=== PATIENT | female | born 2000 | race Caucasian/White ===

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

== ENCOUNTER 2020-07-21 15:42 | Emergency (ER) | payer BC ==
--- NOTE | 2020-07-21 16:23 | ERPHSYRPT ---
- History of Present Illness Source: patient Exam Limitations: no limitations Patient Subjective Stated Complaint: R ankle pain Triage Nursing Assessment: pt to ED c/o R ankle pain unknown onset. states when in college she was walking on campus, ankle began to pop, saw campus clinic and was given a scooter. denies issues from then to now. states ankle has began popping again with ambulation intermittently. rates 2/10 pain. very mild swelling noted to posterior R ankle. Physician History: 19 yo wf w R achilles pain x 10 days. Pt denies injury but had similar pain in Oct or November. Pain is 2/10 and worse w movement/Weight bearing. She denies chest pain/dyspnea/fever/edema. Method of Injury: unknown Occurred: other (10 days of pain) Quality: aching Severity of Pain-Max: moderate Severity of Pain-Current: mild Lower Extremities Pain: foot: right, ankle: right Modifying Factors: Improves With: movement Associated Symptoms: No unable to bear weight, No dizzy, No fainted, No seizure, No snapping sensation, No popping sensation Allergies/Adverse Reactions: No Known Drug Allergies Allergy (Unverified 09/14/13 17:52) Home Medications: No Reportable Medications [No Reported Medications] 03/31/18 [History] Hx Tetanus, Diphtheria Vaccination/Date Given: Yes Hx Influenza Vaccination/Date Given: No Hx Pneumococcal Vaccination/Date Given: No Travel Risk - International Travel Have you traveled outside of the country in past 3 weeks: No - Coronavirus Screening Are you exhibiting any of the following symptoms?: No Close contact with a COVID-19 positive Pt in past 14-21 Days: No - Review of Systems Constitutional: No Symptoms Eyes: No Symptoms Ears, Nose, & Throat: No Symptoms Respiratory: No Symptoms Cardiac: No Symptoms Abdominal/Gastrointestinal: No Symptoms Genitourinary Symptoms: No Symptoms Skin: No Symptoms Neurological: No Symptoms Psychological: No Symptoms Endocrine: No Symptoms Hematologic/Lymphatic: No Symptoms Immunological/Allergic: No Symptoms - Past Medical History Pertinent Past Medical History: No Neurological History: No Pertinent History ENT History: No Pertinent History Cardiac History: No Pertinent History Respiratory History: No Pertinent History Endocrine Medical History: No Pertinent History GI Medical History: No Pertinent History History: No Pertinent History Psycho-Social History: No Pertinent History Female Reproductive Disorders: No Pertinent History - Past Surgical History Past Surgical History: Yes Other Surgical History: TONSILECTOMY/ADNOIDECTOMY - Social History Smoking Status: Never smoker Exposure to second hand smoke: No Drug Use: none Patient Lives Alone: No Significant Family History: no pertinent family hx - Female History Hx Last Menstrual Period: currently Hx Now: No - Nursing Vital Signs Nursing Vital Signs: Initial Vital Signs Temperature 98.4 F 07/21/20 15:49 Pulse Rate 117 H 07/21/20 15:49 Respiratory Rate 18 07/21/20 15:49 Blood Pressure 142/98 07/21/20 15:49 O2 Sat by Pulse Oximetry 96 07/21/20 15:49 Pain Scale Pain Intensity 1 - Physical Exam General Appearance: no apparent distress Eyes, Ears, Nose, Throat Exam: normal ENT inspection, TMs normal, pharynx normal Neck Exam: normal inspection, non-tender, No Brudzinski, No Kernig's Cardiovascular/Respiratory Exam: normal breath sounds, heart sounds normal, no respiratory distress (Mildly tachy) Back Exam: normal inspection Hips Exam: bilateral: non-tender, normal inspection, normal range of motion, no evidence of injury Legs Exam: bilateral leg: non-tender, normal inspection, normal range of motion Knees Exam: bilateral knee: non-tender, normal inspection, normal range of motion, no evidence of injury Ankle Exam: left ankle: non-tender, normal inspection, normal range of motion, no evidence of injury (R achilles insertion mildly ttp/dorsiflexion wo difficulty/Good pedal pulse, distal sensation, and capillary return) DTR - Lower Extremities Exam: knee (R): 2+, knee (L): 2+ Neuro/Tendon Exam: normal sensation, normal motor functions, normal tendon functions, responds to pain, no evidence tendon injury Mental Status Exam: alert, oriented x 3, cooperative Skin Exam: normal color, warm, dry SpO2 Interpretation: normal SpO2: 96 O2 Delivery: Room Air - Radiology Exams Foot X-ray Interpretation: Interpreted by me (R foot-no fx or dislocation) Ordered Tests: Active Orders 24 hr Category Date Time Status Splint STAT Care 07/21/20 16:26 Completed FOOT (MINIMUM 3 VIEWS) Stat Exams 07/21/20 16:19 Completed - Progress Progress: improved Progress Note: 07/21/20 16:28 Pt refused pain meds Walking boot per nurse/NVI Counseled pt/family regarding: diagnosis, need for follow-up, rad results - Departure Departure Disposition: Home Clinical Impression: Achilles tendinitis Condition: Stable Critical Care Time: No Referrals: TIN LAST MD [Primary Care Provider] - VINICIUS - NOEL ARTEAGA NP [NON-STAFF PHY W/O PRIVILEGES] - Instructions: Achilles Tendinopathy Additional Instructions: Walking boot until cleared by family MD or supervisor wound Motrin/Tylenol for pain Follow up with family MD or supervisor wound
[2020-07-21 16:33] VITALS: BP 135/82; PULSE 104
--- NOTE | 2020-07-21 16:49 | XRAY ---
Indication: Heel pain following twisting injury one week ago. Comparison: None 3 nonweightbearing views right foot demonstrates small talonavicular accessory ossicle. No other bony, articular, or soft tissue abnormalities.
[2020-07-21 19:33] VITALS: O2SAT 96
== END 2020-07-21 16:40 | disposition home or self-care (01) ==
LOC: ED 15:42
DX: M76.61 Achilles tendinitis, right leg (principal); M25.571 Pain in right ankle and joints of right foot
CPT/HCPCS: 73630; 99283; L4386

== ENCOUNTER 2024-10-15 17:48 | Emergency (ER) | payer BC ==
--- NOTE | 2024-10-15 17:55 | ERPHSYRPT ---
- History of Present Illness Time Seen by Provider: 10/15/24 17:55 Source: patient Exam Limitations: no limitations Physician History: This is a 23-year-old white female patient who arrives by public transportation and is a patient of Dr. Last and is right-handed. Patient fell after slipping on a plastic mat use for dog food bowl. When she fell she hit the mat the mat broke in half and cut the dorsal aspect of her right wrist. Patient tetanus status is up-to-date. Patient has no known drug allergies and she takes no medications chronically. Timing/Duration: today Quality: painful Severity: mild Location: extremities (Right wrist dorsal aspect) Associated Symptoms: denies symptoms Allergies/Adverse Reactions: latex Allergy (Verified 10/15/24 18:01) Swelling Home Medications: Norethindrone AC-Eth Estradiol [Bud 1.5 mg-30 Mcg Tablet] 1 each PO DAILY 10/15/24 [History] Paroxetine HCl 20 mg [Paxil 20 MG] 20 mg PO DAILY 10/15/24 [History] Hx Tetanus, Diphtheria Vaccination/Date Given: Yes Hx Influenza Vaccination/Date Given: No Hx Pneumococcal Vaccination/Date Given: No Travel Risk - International Travel Have you traveled outside of the country in past 3 weeks: No - Emerging Infectious Disease Are you exhibiting symptoms associated with any current EIDs: No - Review of Systems Constitutional: No Symptoms Eyes: No Symptoms Ears, Nose, & Throat: No Symptoms Respiratory: No Symptoms Cardiac: No Symptoms Abdominal/Gastrointestinal: No Symptoms Genitourinary Symptoms: No Symptoms Musculoskeletal: No Symptoms Skin: Other (Right wrist skin laceration) Neurological: No Symptoms Psychological: No Symptoms Endocrine: No Symptoms Hematologic/Lymphatic: No Symptoms Immunological/Allergic: No Symptoms All Other Systems: Reviewed and Negative - Past Medical History Pertinent Past Medical History: No Neurological History: Migraines ENT History: No Pertinent History Cardiac History: No Pertinent History Respiratory History: No Pertinent History Endocrine Medical History: No Pertinent History Musculoskeletal History: No Pertinent History GI Medical History: No Pertinent History History: No Pertinent History Psycho-Social History: No Pertinent History Female Reproductive Disorders: No Pertinent History - Past Surgical History Past Surgical History: Yes Other Surgical History: TONSILECTOMY/ADNOIDECTOMY Significant Family History: no pertinent family hx - Female History Hx Last Menstrual Period: Aug - Social History Smoking Status: Never smoker Exposure to second hand smoke: No Drug Use: none Patient Lives Alone: No - Nursing Vital Signs Nursing Vital Signs: Initial Vital Signs Temperature 98 F 10/15/24 17:54 Pulse Rate 105 H 10/15/24 17:54 Respiratory Rate 18 10/15/24 17:54 Blood Pressure 147/124 10/15/24 17:54 O2 Sat by Pulse Oximetry 98 10/15/24 17:54 Pain Scale Pain Intensity 5 - Physical Exam General Appearance: no apparent distress, alert, anxiety, obese Eye Exam: PERRL/EOMI, eyes nml inspection Ears, Nose, Throat Exam: normal ENT inspection Neck Exam: normal inspection, non-tender, supple, full range of motion Respiratory Exam: airway intact, No chest tenderness, No respiratory distress Gastrointestinal/Abdomen Exam: No tenderness Pelvic Exam: not done Rectal Exam: not done Back Exam: normal inspection, normal range of motion, No CVA tenderness, No vertebral tenderness Extremity Exam: normal range of motion, pelvis stable, lacerations (1 cm skin laceration dorsal aspect right wrist. No active bleeding. No evidence of foreign body) Neurologic Exam: alert, oriented x 3, cooperative, electric organ assembler and checker II-XII nml as tested, nml cerebellar function, nml station & gait, sensation nml Skin Exam: normal color, warm, dry, laceration (See above extremity section) Lymphatic Exam: No adenopathy SpO2 Interpretation: normal O2 Delivery: Room Air Procedures - Laceration/Wound Repair Right Dorsal Wrist Time of Procedure: 18:15 Wound Location: Right, wrist (Dorsal aspect) Wound Length (cm): 1 Wound's Depth, Shape: superficial, linear Wound Explored: clean (Wound explored to the base. No active bleeding. No foreign body noted) Irrigated: Yes Hibiclens Prep: Yes Wound Repaired With: [place] Progress: 10/15/24 18:31 Patient tolerated the procedure well. After laceration repair, the site was again cleaned with Hibiclens solution, dried and a thin layer of bacitracin ointment was applied. A Band-Aid was placed overlying this repair site. - Course Nursing assessment & vital signs reviewed: Yes Ordered Tests: Active Orders 24 hr Category Date Time Status Sutures STAT Care 10/15/24 18:18 Active Wound Care STAT Care 10/15/24 18:18 Active Medication Summary Discontinued Medications Generic Name Dose Route Start Last Admin Trade Name Mykel PRN Reason Stop Dose Admin Bacitracin Zinc 0.9 each 10/15/24 18:18 10/15/24 18:19 Bacitracin Packet 1 Each Pckt TP 10/15/24 18:19 0.9 each STAT ONE Administration Bacitracin Zinc Confirm 10/15/24 18:16 Bacitracin Packet 1 Each Pckt Administered 10/15/24 18:17 Dose 1 each .ROUTE .STK-MED ONE - Progress Progress: improved Progress Note: 10/15/24 18:31 My medical decision making and the assignment of low complexity to this patient's medical issue today is based on review of the patient's past medical history, review of the patient's medication list, reviewed patient drug allergy list, history present illness and physical findings on examination. The workup does not require any laboratory radiographic studies. Differential diagnosis includes but is not limited to left skin laceration Counseled pt/family regarding: diagnosis, need for follow-up Medical Desision Making - Diagnostic Testing Diagnostic test were ordered, analyzed, and reviewed by me: No - Risk of complications Minimal Risk: Minimal risk of morbidity - Departure Departure Disposition: Home Clinical Impression: Laceration of skin of right wrist Condition: Stable Critical Care Time: No Referrals: TIN LAST MD [Primary Care Provider] - Follow up/PCP as directed Additional Instructions: Use Tylenol and ibuprofen for pain control. Keep the current bandage in place for 24 hours. After 24 hours, remove the current bandage and rinse the site off with soapy water. Blot dry or use a chair inspector then apply a thin layer of antibiotic ointment of choice and again cover with Band-Aid/bandage. Suture removal in 7 days.
[2024-10-15 18:01] VITALS: RESP 18; TEMP 98
[2024-10-15] MEDS ORDERED: BACIGUENT PACKET ONE (18:16)
[2024-10-15] MEDS: BACIGUENT PACKET TP ONE (18:19)
[2024-10-15 18:35] VITALS: BP 115/92; PULSE 108; O2SAT 96
== END 2024-10-15 18:41 | disposition home or self-care (01) ==
LOC: ED 17:48
DX: S61.511A Laceration without foreign body of right wrist, initial encounter (principal); W01.198A Fall on same level from slipping, tripping and stumbling with subsequent striking against other object, initial encounter
CPT/HCPCS: 12001; 99283; A9270-GY

== ENCOUNTER 2024-12-04 18:10 | Emergency (ER) | payer BC ==
--- NOTE | 2024-12-04 18:14 | ERPHSYRPT ---
- History of Present Illness Time Seen by Provider: 12/04/24 18:13 Source: patient, family Exam Limitations: no limitations Physician History: Pt had onset of 9 out of 10 mid low lumbar and sacral pain with nausea and some radiation to low abd. No Hx trauma, No blood thinners, some nausea/vomiting. No hx cancer no fever, no bowel or bladder symptoms although some blood with stools - no pain. No vag dc. Nontender abd without peritoneal signs. Chest clear. Ht reg without M. tender posterior sacrum midline and lower lumbar. Discussed with pt and available family risks and benefits of testing/Tx including CBC, CMP, HCG, UA, Amylase, Lipase, CT abd and spinal reconstruction , pain med dilaudid, and they wish to proceed so these are ordered. Results discussed with pt and available family. Timing/Duration: today Method of Injury: other (no injury reported) Quality: sharp, stabbing Back Pain Location: lumbar spine Severity of Pain-Max: moderate Severity of Pain-Current: moderate Modifying Factors: Improves With: movement, pain medication Associated Symptoms: nausea, vomiting, other (blood with bowel movements) Previous symptoms: no prior history Allergies/Adverse Reactions: latex Allergy (Verified 10/15/24 18:01) Swelling Home Medications: Norethindrone AC-Eth Estradiol [Bud 1.5 mg-30 Mcg Tablet] 1 each PO DAILY 10/15/24 [History] Paroxetine HCl 20 mg [Paxil 20 MG] 20 mg PO DAILY 10/15/24 [History] Hx Tetanus, Diphtheria Vaccination/Date Given: Yes Hx Influenza Vaccination/Date Given: No Hx Pneumococcal Vaccination/Date Given: No Travel Risk - Emerging Infectious Disease Are you exhibiting symptoms associated with any current EIDs: No - Review of Systems Constitutional: No Fever, No Chills Eyes: No Symptoms Ears, Nose, & Throat: No Symptoms Respiratory: No Cough, No Dyspnea Cardiac: No Chest Pain, No Edema, No Syncope Abdominal/Gastrointestinal: Nausea, Vomiting, No Abdominal Pain, No Diarrhea Genitourinary Symptoms: No Dysuria Musculoskeletal: Back Pain, No Neck Pain, No Fall, No Injury Skin: No Symptoms, No Rash Neurological: No Dizziness, No Focal Weakness, No Sensory Changes Psychological: No Symptoms Endocrine: No Symptoms Hematologic/Lymphatic: No Symptoms Immunological/Allergic: No Symptoms All Other Systems: Reviewed and Negative - Past Medical History Pertinent Past Medical History: No Neurological History: Migraines ENT History: No Pertinent History Cardiac History: No Pertinent History Respiratory History: No Pertinent History Endocrine Medical History: No Pertinent History Musculoskeletal History: No Pertinent History GI Medical History: No Pertinent History History: No Pertinent History Psycho-Social History: No Pertinent History Female Reproductive Disorders: No Pertinent History Other Medical History: UTI - Past Surgical History Past Surgical History: Yes Other Surgical History: TONSILECTOMY/ADNOIDECTOMY Significant Family History: no pertinent family hx - Female History Hx Last Menstrual Period: Aug - Social History Smoking Status: Never smoker Exposure to second hand smoke: No Drug Use: none Patient Lives Alone: No - Social Determinants of Health Will the patient participate in the screening: Declined to provide - Nursing Vital Signs Nursing Vital Signs: Initial Vital Signs Temperature 96.8 F 12/04/24 18:20 Pulse Rate 116 H 12/04/24 18:20 Respiratory Rate 18 12/04/24 18:20 Blood Pressure 173/113 12/04/24 18:20 O2 Sat by Pulse Oximetry 99 12/04/24 18:20 Pain Scale Pain Intensity [] 8 Pain Intensity 5 - Physical Exam General Appearance: no apparent distress, alert Eye Exam: PERRL/EOMI, eyes nml inspection Neck Exam: normal inspection, non-tender, supple, full range of motion, No meningismus, No midline tenderness Respiratory Exam: normal breath sounds, lungs clear, No chest tenderness, No respiratory distress Cardiovascular Exam: regular rate/rhythm, normal heart sounds Gastrointestinal Exam: soft, No tenderness, No distention, No mass, No guarding, No pulsatile mass, No rebound Pelvic Exam: deferred Rectal Exam: deferred Back Exam: normal inspection, vertebral tenderness, point tenderness Extremity Exam: normal inspection, normal range of motion, No calf tenderness, No pedal edema Peripheral Pulses: carotid (R): 2+, carotid (L): 2+, femoral (R): 2+, femoral (L): 2+, dorsalis-pedis (R): 2+, dorsalis-pedis (L): 2+ Neurologic Exam: alert, oriented x 3, cooperative, group managing director II-XII nml as tested, normal mood/affect, nml station & gait, sensation nml, No motor deficits Skin Exam: normal color, warm, dry, No rash SpO2 Interpretation: normal SpO2: 99 O2 Delivery: Room Air - Course Nursing assessment & vital signs reviewed: Yes - CT Exams Abdomen/Pelvis CT Interpretation: Tele-radiologist Report, Other (left renal stone and mild hyd ro. ) Ordered Tests: Active Orders 24 hr Category Date Time Status IV Insertion STAT Care 12/04/24 18:36 Active ABDOMEN AND PELVIS W/0 CONTRAS [CT] Stat Exams 12/04/24 18:35 Completed RECONSTRUCTION [CT] Stat Exams 12/04/24 19:08 Completed AMYLASE Stat Lab 12/04/24 18:45 Completed CBC W DIFF Stat Lab 12/04/24 18:45 Completed CMP Stat Lab 12/04/24 18:45 Completed CULTURE,URINE Stat Lab 12/04/24 19:01 Received HCG QUALITATIVE, SERUM Stat Lab 12/04/24 18:45 Completed LIPASE Stat Lab 12/04/24 18:45 Completed Lactic Acid Stat Lab 12/04/24 18:45 Completed UA W/RFX UR CULTURE Stat Lab 12/04/24 19:01 Completed Medication Summary Discontinued Medications Generic Name Dose Route Start Last Admin Trade Name Mykel PRN Reason Stop Dose Admin Hydromorphone HCl 1 mg 12/04/24 18:36 12/04/24 18:52 Hydromorphone 1 Mg/1ml Inj IV 12/04/24 18:37 1 mg STAT ONE Administration Hydromorphone HCl Confirm 12/04/24 18:47 Hydromorphone 1 Mg/1ml Inj Administered 12/04/24 18:48 Dose 1 mg .ROUTE .STK-MED ONE Hydromorphone HCl 1 mg 12/04/24 22:44 12/04/24 23:08 Hydromorphone 1 Mg/1ml Inj IV 12/04/24 22:45 1 mg STAT ONE Administration Hydromorphone HCl Confirm 12/04/24 23:05 Hydromorphone 1 Mg/1ml Inj Administered 12/04/24 23:06 Dose 1 mg .ROUTE .STK-MED ONE Ceftriaxone Sodium 1 gm in 100 mls @ 200 mls/hr 12/04/24 22:12 12/04/24 23:15 Rocephin 1 Gm / 100 Ml Nacl IV 12/04/24 22:41 200 mls/hr STAT ONE 200 mls/hr Administration Ceftriaxone Sodium Confirm 12/04/24 23:05 Rocephin 1 Gm / 100 Ml Nacl Administered 12/04/24 23:06 Dose 1 gm in 100 mls @ ud IV .STK-MED ONE Ondansetron HCl 4 mg 12/04/24 18:36 12/04/24 18:51 Ondansetron Hcl 4 Mg/2 Ml Vial IV 12/04/24 18:37 4 mg STAT ONE Administration Ondansetron HCl Confirm 12/04/24 18:47 Ondansetron Hcl 4 Mg/2 Ml Vial Administered 12/04/24 18:48 Dose 4 mg .ROUTE .STK-MED ONE Lab/Rad Data: Laboratory Result Diagrams 12/04/24 18:45 12/04/24 18:45 Laboratory Results 12/04/24 12/04/24 12/04/24 Range/Units 19:01 18:45 18:45 WBC (3.98-10.04) x10^3/uL RBC (3.93-5.22) x10^6/uL Hgb (11.2-15.7) g/dL Hct (34.1-44.9) % MCV (79.4-94.8) fL MCH (25.6-32.2) pg MCHC (32.2-35.5) g/dL RDW (11.7-14.4) % Plt Count (182-369) x10^3/uL MPV (9.4-12.3) fL Gran % (34.0-71.1) % Immature Gran % (Auto) (0.001-0.429) % Nucleat RBC Rel Count (0.00-0.2) % Eos # (Auto) (0.04-0.36) x10^3/uL Immature Gran # (Auto) (0.001-0.031) x10^3u/L Absolute Lymphs (auto) (1.18-3.74) x10^3/uL Absolute Monos (auto) (0.24-0.86) x10^3/uL Absolute Nucleated RBC (0.00-0.012) x10^3u/L Lymphocytes % (19.3-51.7) % Monocytes % (4.7-12.5) % Eosinophils % (0.7-5.8) % Basophils % (0.1-1.2) % Absolute Granulocytes (1.56-6.13) x10^3/uL Basophils # (0.01-0.08) x10^3/uL Sodium 138 (135-145) mmol/L Potassium 4.0 (3.5-5.1) mmol/L Chloride 107 (98-107) mmol/L Carbon Dioxide 19 L (22-30) mmol/L Anion Gap 16.1 H (5-15) MEQ/L BUN 10 (7-17) mg/dL Creatinine 0.78 (0.52-1.04) mg/dL Estimated GFR 108.7 ML/MIN Glucose 122 H (74-106) mg/dL Lactic Acid (0.4-2.0) Calcium 9.6 (8.4-10.2) mg/dL Total Bilirubin 0.40 (0.2-1.3) mg/dL AST 29 (14-36) U/L ALT 26 (0-35) U/L Alkaline Phosphatase 107 (38-126) U/L Serum Total Protein 8.1 (6.3-8.2) g/dL Albumin 4.9 (3.5-5.0) g/dL Amylase 66 (30-110) U/L Lipase 48 (23-300) U/L Serum HCG, Qual NEGATIVE (NEGATIVE) Urine Color Yellow (Yellow) Urine Appearance Clear (Clear) Urine pH 6.0 (4.6-8.0) Ur Specific [place] 1.025 (1.005-1.030) Urine Protein 30 (Negative) Urine Glucose (UA) Negative (Negative) mg/dL Urine Ketones 15 A (Negative) Urine Blood Negative (Negative) Urine Nitrite Negative (Negative) Urine Bilirubin Negative (Negative) Urine Urobilinogen 0.2 (0.2) mg/dL Ur Leukocyte Esterase Negative (Negative) U Hyaline Cast (Auto) NONE SEEN (0-2) /LPF Urine Microscopic RBC 3-5 (0-5) /HPF Urine Microscopic WBC 11-20 A (0-5) /HPF Ur Epithelial Cells Few (None Seen) /HPF Urine Bacteria Few A (None Seen) /HPF Urine Culture Reflexed YES (NO) 12/04/24 12/04/24 Range/Units 18:45 18:45 WBC 18.8 H (3.98-10.04) x10^3/uL RBC 4.93 (3.93-5.22) x10^6/uL Hgb 14.2 (11.2-15.7) g/dL Hct 42.7 (34.1-44.9) % MCV 86.6 (79.4-94.8) fL MCH 28.8 (25.6-32.2) pg MCHC 33.3 (32.2-35.5) g/dL RDW 13.7 (11.7-14.4) % Plt Count 427 H (182-369) x10^3/uL MPV 9.6 (9.4-12.3) fL Gran % 79.2 H (34.0-71.1) % Immature Gran % (Auto) 0.5 H (0.001-0.429) % Nucleat RBC Rel Count 0.0 (0.00-0.2) % Eos # (Auto) 0.20 (0.04-0.36) x10^3/uL Immature Gran # (Auto) 0.10 H (0.001-0.031) x10^3u/L Absolute Lymphs (auto) 2.69 (1.18-3.74) x10^3/uL Absolute Monos (auto) 0.84 (0.24-0.86) x10^3/uL Absolute Nucleated RBC 0.00 (0.00-0.012) x10^3u/L Lymphocytes % 14.3 L (19.3-51.7) % Monocytes % 4.5 L (4.7-12.5) % Eosinophils % 1.1 (0.7-5.8) % Basophils % 0.4 (0.1-1.2) % Absolute Granulocytes 14.84 H (1.56-6.13) x10^3/uL Basophils # 0.08 (0.01-0.08) x10^3/uL Sodium (135-145) mmol/L Potassium (3.5-5.1) mmol/L Chloride (98-107) mmol/L Carbon Dioxide (22-30) mmol/L Anion Gap (5-15) MEQ/L BUN (7-17) mg/dL Creatinine (0.52-1.04) mg/dL Estimated GFR ML/MIN Glucose (74-106) mg/dL Lactic Acid 1.9 (0.4-2.0) Calcium (8.4-10.2) mg/dL Total Bilirubin (0.2-1.3) mg/dL AST (14-36) U/L ALT (0-35) U/L Alkaline Phosphatase (38-126) U/L Serum Total Protein (6.3-8.2) g/dL Albumin (3.5-5.0) g/dL Amylase (30-110) U/L Lipase (23-300) U/L Serum HCG, Qual (NEGATIVE) Urine Color (Yellow) Urine Appearance (Clear) Urine pH (4.6-8.0) Ur Specific [place] (1.005-1.030) Urine Protein (Negative) Urine Glucose (UA) (Negative) mg/dL Urine Ketones (Negative) Urine Blood (Negative) Urine Nitrite (Negative) Urine Bilirubin (Negative) Urine Urobilinogen (0.2) mg/dL Ur Leukocyte Esterase (Negative) U Hyaline Cast (Auto) (0-2) /LPF Urine Microscopic RBC (0-5) /HPF Urine Microscopic WBC (0-5) /HPF Ur Epithelial Cells (None Seen) /HPF Urine Bacteria (None Seen) /HPF Urine Culture Reflexed (NO) - Progress Progress: improved, re-examined Progress Note: 12/04/24 23:47 pain down from 9 to 0 now. I discussed with pt and mom that this pain may not necessarily be related to the stone, and that there could be additional pathology evolving undetected incuding infection, vascular, abdominal or other. they are aware, and wish to have outpt f/u rather than furhter eval in ER or hospital and have the cqapcity to make this choice. Counseled pt/family regarding: lab results, diagnosis, need for follow-up, rad results Medical Desision Making - Independent Historian Additional History obtained from: Family - Discussion of managment Reviewed:: Test results, Need for additional workup Agreed on:: Treatment plan, need for follow-up - Diagnostic Testing Diagnostic test were ordered, analyzed, and reviewed by me: Yes Radiological Interpretation: Teleradiologist Report - Risk of complications The pt has a mod risk of morbidity or mortality based on: Need for prescription drug management The pt has a high risk of morbidity or mortality based on: Decision regarding hospitilization or escalation of hosp level of care - Departure Departure Disposition: Home Clinical Impression: Renal calculus, UTI (urinary tract infection) Condition: Good Critical Care Time: No Referrals: TIN LAST MD [Primary Care Provider] - Follow up/PCP as directed Instructions: Low Back Pain (DC), Kidney stones in adults - ED discharge instructions, Urinary tract infection in adults - ED discharge instructions, Abdominal pain in adults - ED discharge instructions Additional Instructions: Although there is a kidney stone which seems a likely source for your pain, we have not yet determined the exact cause, and there still could be other undetected conditions developing - so followup with your DrGayathri and referral to a urologist are important. Return meantime if not improving, vomiting, fever, dizziness or any othe4r symptoms of concern. also followup your blood pressure with your Dr. strain the urine for the stones. Prescriptions: Hydrocodone/Acetaminophen [Hydrocodone-Acetamin 5-325 mg] 1 tab PO Q6HPRN PRN #14 tablet MDD 4 PRN Reason: Pain Cephalexin Mh 500 mg [Keflex 500 mg] 500 mg PO TID 7 Days #21 cap
[2024-12-04 18:21] VITALS: TEMP 96.8
[2024-12-04] MEDS ORDERED: Hydromorphone 1 mg/ml Injection ONE ×2 (18:47→23:05)
[2024-12-04] MEDS ORDERED: Zofran 4 MG/2 ML VIAL ONE (18:47)
[2024-12-04 18:48] LABS: Absolute Neutrophil Ct (ANC) 14.84 x10^3/uL (1.56-6.13); BASOPHIL % 0.4 % (0.1-1.2); Basophil (Absolute #) 0.08 x10^3/uL (0.01-0.08); Eosinophil % 1.1 % (0.7-5.8); Hematocrit 42.7 % (34.1-44.9); Hemoglobin 14.2 g/dL (11.2-15.7); IMMATURE GRAN % 0.5 % (0.001-0.429); Lymphocyte (Absolute #) 2.69 x10^3/uL (1.18-3.74); Lymphocytes % 14.3 % (19.3-51.7); Mean Cell Volume 86.6 fL (79.4-94.8); Mean Corpuscular Hemoglobin 28.8 pg (25.6-32.2); Mean Corpuscular Hgb Concent. 33.3 g/dL (32.2-35.5); Mean Platelet Volume 9.6 fL (9.4-12.3); Monocyte (Absolute #) 0.84 x10^3/uL (0.24-0.86); Monocytes % 4.5 % (4.7-12.5); Neutrophil % 79.2 % (34.0-71.1); Platelet Count 427 x10^3/uL (182-369); Red Blood Count 4.93 x10^6/uL (3.93-5.22); Red Cell Distribution Width 13.7 % (11.7-14.4); White Blood Count 18.8 x10^3/uL (3.98-10.04)
[2024-12-04] MEDS: Zofran 4 MG/2 ML VIAL IV ONE (18:51)
[2024-12-04] MEDS: Hydromorphone 1 mg/ml Injection IV ONE ×2 (18:52→23:08)
[2024-12-04 19:00] LABS: ALBUMIN 4.9 g/dL (3.5-5.0); ANION GAP 16.1 MEQ/L (5-15); BILIRUBIN,TOTAL 0.4 mg/dL (0.2-1.3); Calcium 9.6 mg/dL (8.4-10.2); Creatinine 1 0.78 mg/dL (0.52-1.04); EST GLOMERULAR FILTRATION RATE 108.7 ML/MIN; Total Protein 8.1 g/dL (6.3-8.2)
[2024-12-04 19:12] LABS: HCG SERUM TEST NEGATIVE (NEGATIVE)
[2024-12-04 20:17] LABS: Appearance Clear (Clear); Bacteria Few /HPF (None Seen); Bilirubin Negative (Negative); Blood Negative (Negative); Epithelial Cells Few /HPF (None Seen); Glucose, Urine Negative (Negative); Hyaline Casts NONE SEEN /LPF (0-2); Ketones 15 (Negative); Leukocyte Esterase Negative (Negative); Nitrite Negative (Negative); Protein,Urine Dip 30 (Negative); Specific Gravity 1.025 (1.005-1.030); Urobilinogen 0.2 mg/dL (0.2)
--- NOTE | 2024-12-04 21:49 | XRAY ---
CLINICAL HISTORY: back and abd pain COMPARISON: No prior studies available for comparison TECHNIQUE: Non-contrast CT of the abdomen and pelvis was performed, with the following protocol: axial images, and reconstructed coronal and sagittal images. No intravenous contrast was administered. One of the following dose reduction techniques was utilized for this exam: Automated exposure control, adjustment of the mA and/or kV according to patient size, and use of iterative reconstruction. FINDINGS: Abdomen: Liver: Enlarged in size measuring 19.7 cm in craniocaudal span with diffuse hypodensity. No focal lesions, cysts, or masses were identified. Gallbladder and Biliary System: The gallbladder is normal in size and shape. No wall thickening, pericholecystic fluid, or gallstones were identified. Pancreas: Pancreatic head, body, and tail are visualized and appear normal in size and density. No pancreatic masses or calcifications were noted. Spleen: Normal in size, shape, and density. No splenic lesions or masses were identified. Kidneys and Adrenal Glands: Both kidneys are normal in size, shape, and position. Cortical thickness is within normal limits. Left renal pelvic stone seen measuring 1 x 0.7 cm with subsequent mild hydronephrosis. Adrenal glands are unremarkable. Appendix: The appendix is normal in size without franck appendiceal fat stranding, and without an appendicolith. No evidence of appendiceal abscess or perforation. Pelvis: Urinary Bladder: Normal in contour and wall thickness. No intraluminal lesions. Uterus: Normal in size and contour. No masses or abnormal thickening. Ovaries: Not well visualized but no gross abnormalities noted. Vagina: Normal in contour and wall thickness. Cervix: No evidence of mass or abnormal thickening. Peritoneal and Retroperitoneal Structures: No free fluid or abnormal fluid collections were identified within the abdomen or pelvis. No lymphadenopathy was noted. Bowel: The visualized bowel loops are normal in caliber and appearance. No evidence of bowel obstruction or wall thickening. Bones and Soft Tissues: Pelvic bones and soft tissues are unremarkable. No fractures or abnormal masses were identified. IMPRESSION: Left renal pelvic stone seen measuring 1 x 0.7 cm with subsequent mild hydronephrosis. Hepatosteatosis. Electronically Signed by: Indigo King MD. (12/04/2024 21:44:11 EST)
--- NOTE | 2024-12-04 21:51 | XRAY ---
CLINICAL HISTORY: PAIN COMPARISON: No prior studies are available for comparison. TECHNIQUE: CT non-contrast scan of lumbar spine done. Axial images obtained with reformatted coronal and sagittal images and submitted for interpretation. One of the following dose reduction techniques were utilized for this exam: Automated exposure control, adjustment of the mA and/or kV according to patient size, use of iterative reconstruction. FINDINGS: Vertebrae: Straightening of the lumbar spine possibly due to muscular spasm. No fractures, lytic or sclerotic lesions. Normal bone density without evidence of osteopenia or osteoporosis. Intervertebral Discs: Normal height and signal intensity of the intervertebral discs. No evidence of disc herniation, bulging, or significant degeneration. Spinal Canal and Neural Foramina: Spinal canal is of normal caliber with no evidence of spinal stenosis. Neural foramina are patent bilaterally at all levels. No evidence of nerve root compression. Facet Joints: Normal appearance of the facet joints. No evidence of facet arthropathy or significant degenerative changes. Soft Tissues: Normal appearance of the paraspinal soft tissues. No abnormal masses, fluid collections, or signs of inflammation. Left renal pelvic stone measuring about 1 cm with mild backpressure changes. IMPRESSION: 1. Straightening of the lumbar spine possibly due to muscular spasm. 2. No fractures, dislocation, or significant degenerative changes. 3. Left renal pelvic stone measuring about 1 cm with mild backpressure changes. Electronically Signed by: Indigo King MD. (12/04/2024 21:46:05 EST)
[2024-12-04] MEDS ORDERED: ROCEPHIN 1 GM / 100 ML NaCl 1 GM/100 ML IVPB IV ONE (23:05)
[2024-12-04] MEDS: ROCEPHIN 1 GM / 100 ML NaCl 1 GM/100 ML IVPB IV ONE (23:15)
[2024-12-05 00:05] VITALS: BP 153/107; PULSE 98; RESP 18; O2SAT 96
== END 2024-12-05 00:11 | disposition home or self-care (01) ==
LOC: ED 18:10
DX: N13.2 Hydronephrosis with renal and ureteral calculous obstruction (principal); N39.0 Urinary tract infection, site not specified; M54.50 Low back pain, unspecified; R11.0 Nausea; R10.30 Lower abdominal pain, unspecified; Z79.891 Long term (current) use of opiate analgesic; Z79.899 Other long term (current) drug therapy
CPT/HCPCS: 36415; 74176; 76376; 80053; 81001; 82150; 83605; 83690; 84703; 85025; 87086; 96374; 96375; 96376; 99284; 99285; J0696; J1171; J2405

== ENCOUNTER 2024-12-22 15:59 | Emergency (ER) | payer BC ==
--- NOTE | 2024-12-22 16:04 | ERPHSYRPT ---
- History of Present Illness Time Seen by Provider: 12/22/24 16:03 Source: patient Exam Limitations: no limitations Physician History: This is a 24-year-old white female patient of Dr. Last who arrives by private vehicle and was seen in our emergency department on 12/04/2024 and diagnosed with a renal stone and urinary tract infection as well as hydronephrosis. A CT scan of the abdomen pelvis was performed on the same date which showed a left renal pelvic stone measuring 1 cm x 0.7 cm with mild hydronephrosis, normal appendicitis. Patient was offered transfer to a outside facility but the patient desired outpatient follow-up with a urologist. She did in fact see a urologist and patient underwent left renal calculus removal with left ureteral stent placement. The ureteral stent on the left side was removed today at [facility] in [facility] at approximately 9:30 AM. She reports, she was discharged to home and by 10:15 AM, the pain was returning in the left flank region. Patient took ibuprofen which resolved her pain nearly completely. Within a few hours the pain in the left flank returned and she took Tylenol which did not help. The cramping type pain in the left flank was worse and she arrives to the emergency department with left flank pain. She is tearful. Timing/Duration: today Activites at Onset: none Quality: cramping, stabbing Onset Location: left flank Pain Radiation: none Severity of Pain-Max: moderate Severity of Pain-Current: moderate Sexual intercourse history: non-contributory Modifying Factors: Improves With: other (Ibuprofen seem to help.) Associated Symptoms: denies symptoms Allergies/Adverse Reactions: latex Allergy (Verified 12/22/24 16:09) Swelling Home Medications: Norethindrone AC-Eth Estradiol [Bud 1.5 mg-30 Mcg Tablet] 1 each PO DAILY 10/15/24 [History] Paroxetine HCl 20 mg [Paxil 20 MG] 20 mg PO DAILY 10/15/24 [History] Ketorolac Trometh 10 mg Tab [TORAdol 10 MG TABLET] 10 mg PO BID 12/22/24 [History] Tamsulosin HCl 0.4 mg [Flomax 0.4 MG] 0.4 mg PO DAILY 12/22/24 [History] Hx Tetanus, Diphtheria Vaccination/Date Given: Yes Hx Influenza Vaccination/Date Given: No Hx Pneumococcal Vaccination/Date Given: No Travel Risk - International Travel Have you traveled outside of the country in past 3 weeks: No - Emerging Infectious Disease Are you exhibiting symptoms associated with any current EIDs: No Symptoms: Vomitting - Review of Systems Constitutional: No Symptoms Eyes: No Symptoms Ears, Nose, & Throat: No Symptoms Respiratory: No Symptoms Cardiac: No Symptoms Abdominal/Gastrointestinal: No Symptoms Genitourinary Symptoms: Flank Pain (Left side) Musculoskeletal: No Symptoms Skin: No Symptoms Neurological: No Symptoms Psychological: No Symptoms Endocrine: No Symptoms Hematologic/Lymphatic: No Symptoms Immunological/Allergic: No Symptoms All Other Systems: Reviewed and Negative - Past Medical History Pertinent Past Medical History: No Neurological History: Migraines ENT History: No Pertinent History Cardiac History: No Pertinent History Respiratory History: No Pertinent History Endocrine Medical History: No Pertinent History Musculoskeletal History: No Pertinent History GI Medical History: No Pertinent History History: No Pertinent History Psycho-Social History: No Pertinent History Female Reproductive Disorders: No Pertinent History Other Medical History: UTI - Past Surgical History Past Surgical History: Yes Other Surgical History: TONSILECTOMY/ADNOIDECTOMY Significant Family History: no pertinent family hx - Female History Hx Last Menstrual Period: Aug - Social History Smoking Status: Never smoker Exposure to second hand smoke: No Drug Use: none Patient Lives Alone: No - Social Determinants of Health Will the patient participate in the screening: Declined to provide - Nursing Vital Signs Nursing Vital Signs: Initial Vital Signs Temperature 96.8 F 12/22/24 16:12 Pulse Rate 103 H 12/22/24 16:12 Respiratory Rate 18 12/22/24 16:12 Blood Pressure 151/95 12/22/24 16:12 O2 Sat by Pulse Oximetry 97 12/22/24 16:12 Pain Scale Pain Intensity 1 - Physical Exam General Appearance: mild distress, alert, anxiety Eye Exam: PERRL/EOMI, eyes nml inspection Ears, Nose, Throat Exam: normal ENT inspection, moist mucous membranes Neck Exam: normal inspection, non-tender, supple, full range of motion Respiratory Exam: normal breath sounds, lungs clear, airway intact, No chest tenderness, No respiratory distress Cardiovascular Exam: regular rate/rhythm, normal heart sounds, normal peripheral pulses Gastrointestinal/Abdomen Exam: soft, normal bowel sounds, No tenderness Pelvic Exam: not done Rectal Exam: not done Back Exam: normal inspection, normal range of motion, CVA tenderness (Left side) Extremity Exam: normal inspection, normal range of motion, pelvis stable Neurologic Exam: alert, oriented x 3, cooperative, line o scribe operator II-XII nml as tested, normal mood/affect, nml cerebellar function, nml station & gait, sensation nml Skin Exam: normal color, warm, dry Lymphatic Exam: No adenopathy SpO2 Interpretation: normal O2 Delivery: Room Air - Course Nursing assessment & vital signs reviewed: Yes Ordered Tests: Active Orders 24 hr Category Date Time Status IV Insertion STAT Care 12/22/24 16:24 Active ABDOMEN AND PELVIS W/0 CONTRAS [CT] Stat Exams 12/22/24 16:24 Taken AMYLASE Stat Lab 12/22/24 16:15 Completed CBC W DIFF Stat Lab 12/22/24 16:15 Completed CMP Stat Lab 12/22/24 16:15 Completed CULTURE,URINE Stat Lab 12/22/24 17:15 Received LIPASE Stat Lab 12/22/24 16:15 Completed UA W/RFX UR CULTURE Stat Lab 12/22/24 17:15 Completed Medication Summary Generic Name Dose Route Start Last Admin Trade Name Freq PRN Reason Stop Dose Admin Ceftriaxone Sodium 1 gm in 100 mls @ 200 mls/hr 12/22/24 17:57 12/22/24 18:07 Rocephin 1 Gm / 100 Ml Nacl IV 12/22/24 18:26 200 ml/hr STAT ONE 200 mls/hr Administration Discontinued Medications Generic Name Dose Route Start Last Admin Trade Name Freq PRN Reason Stop Dose Admin Hydromorphone HCl 1 mg 12/22/24 16:24 12/22/24 16:42 Hydromorphone 1 Mg/1ml Inj IV 12/22/24 16:25 1 mg STAT ONE Administration Hydromorphone HCl Confirm 12/22/24 16:31 Hydromorphone 1 Mg/1ml Inj Administered 12/22/24 16:32 Dose 1 mg .ROUTE .STK-MED ONE Sodium Chloride 1,000 mls @ 999 mls/hr 12/22/24 16:24 12/22/24 17:54 Sodium Chloride 0.9% 1000 Ml IV 12/22/24 17:24 Infused .Q1H1M STA Infusion Sodium Chloride Confirm 12/22/24 16:31 Sodium Chloride 0.9% 1000 Ml Administered 12/22/24 16:32 Dose 1,000 mls @ ud .ROUTE .STK-MED ONE Ceftriaxone Sodium Confirm 12/22/24 18:05 Rocephin 1 Gm / 100 Ml Nacl Administered 12/22/24 18:06 Dose 1 gm in 100 mls @ ud IV .STK-MED ONE Ketorolac Tromethamine 30 mg 12/22/24 16:24 12/22/24 16:39 Ketorolac Tromethamine 30 Mg/Ml Inj IV 12/22/24 16:25 30 mg STAT ONE Administration Ketorolac Tromethamine Confirm 12/22/24 16:30 Ketorolac Tromethamine 30 Mg/Ml Inj Administered 12/22/24 16:31 Dose 30 mg .ROUTE .STK-MED ONE Ondansetron HCl 4 mg 12/22/24 16:24 12/22/24 16:33 Ondansetron Hcl 4 Mg/2 Ml Vial IV 12/22/24 16:25 4 mg STAT ONE Administration Ondansetron HCl Confirm 12/22/24 16:29 Ondansetron Hcl 4 Mg/2 Ml Vial Administered 12/22/24 16:30 Dose 4 mg .ROUTE .STK-MED ONE Lab/Rad Data: Laboratory Result Diagrams 12/22/24 16:15 12/22/24 16:15 Laboratory Results 12/22/24 12/22/24 12/22/24 Range/Units 17:15 16:15 16:15 WBC 20.4 H (3.98-10.04) x10^3/uL RBC 4.40 (3.93-5.22) x10^6/uL Hgb 12.7 (11.2-15.7) g/dL Hct 38.3 (34.1-44.9) % MCV 87.0 (79.4-94.8) fL MCH 28.9 (25.6-32.2) pg MCHC 33.2 (32.2-35.5) g/dL RDW 13.9 (11.7-14.4) % Plt Count 417 H (182-369) x10^3/uL MPV 9.3 L (9.4-12.3) fL Gran % 76.4 H (34.0-71.1) % Immature Gran % (Auto) 0.5 H (0.001-0.429) % Nucleat RBC Rel Count 0.0 (0.00-0.2) % Eos # (Auto) 0.12 (0.04-0.36) x10^3/uL Immature Gran # (Auto) 0.11 H (0.001-0.031) x10^3u/L Absolute Lymphs (auto) 3.09 (1.18-3.74) x10^3/uL Absolute Monos (auto) 1.48 H (0.24-0.86) x10^3/uL Absolute Nucleated RBC 0.00 (0.00-0.012) x10^3u/L Lymphocytes % 15.1 L (19.3-51.7) % Monocytes % 7.2 (4.7-12.5) % Eosinophils % 0.6 L (0.7-5.8) % Basophils % 0.2 (0.1-1.2) % Absolute Granulocytes 15.58 H (1.56-6.13) x10^3/uL Basophils # 0.05 (0.01-0.08) x10^3/uL Sodium 139 (135-145) mmol/L Potassium 4.2 (3.5-5.1) mmol/L Chloride 103 (98-107) mmol/L Carbon Dioxide 24 (22-30) mmol/L Anion Gap 16.0 H (5-15) MEQ/L BUN 12 (7-17) mg/dL Creatinine 0.79 (0.52-1.04) mg/dL Estimated GFR 107.1 ML/MIN Glucose 146 H (74-106) mg/dL Calcium 9.3 (8.4-10.2) mg/dL Total Bilirubin 0.40 (0.2-1.3) mg/dL AST 23 (14-36) U/L ALT 23 (0-35) U/L Alkaline Phosphatase 79 (38-126) U/L Serum Total Protein 7.0 (6.3-8.2) g/dL Albumin 4.3 (3.5-5.0) g/dL Amylase 53 (30-110) U/L Lipase 22 L (23-300) U/L Urine Color Yellow (Yellow) Urine Appearance Clear (Clear) Urine pH 6.5 (4.6-8.0) Ur Specific [place] 1.010 (1.005-1.030) Urine Protein 30 (Negative) Urine Glucose (UA) Negative (Negative) mg/dL Urine Ketones Negative (Negative) Urine Blood Large A (Negative) Urine Nitrite Negative (Negative) Urine Bilirubin Negative (Negative) Urine Urobilinogen 0.2 (0.2) mg/dL Ur Leukocyte Esterase Moderate A (Negative) U Hyaline Cast (Auto) NONE SEEN (0-2) /LPF Urine Microscopic RBC 11-20 A (0-5) /HPF Urine Microscopic WBC 21-50 A (0-5) /HPF Ur Epithelial Cells Rare (None Seen) /HPF Urine Bacteria None Seen (None Seen) /HPF Urine Culture Reflexed YES (NO) - Progress Progress: improved, re-examined Air Movement: good Progress Note: 12/22/24 16:52 My medical decision making of the assignment of moderate complexity to this patient's medical issue today is based on review of the patient's past medical history, review of the patient's medication list, review the patient drug allergy list, history present illness and physical findings on examination. The workup in this patient includes placement of an intravenous line, infusion of normal saline solution, infusion of Dilaudid, infusion of Zofran, infusion of Toradol, CBC, CMP, amylase, lipase, CT scan of the abdomen pelvis without contrast. Differential diagnosis includes but is not limited to postprocedure left renal and ureteral hydronephrosis, pyelonephritis 12/22/24 18:25 I interpreted the patient's laboratory data results. Based on the laboratory data results, the patient has a leukocytosis of 20,000. No other acute, emergent medical issues. The CT scan without contrast was interpreted by the radiologist and I reviewed the impression. The impression states compared to the similar study dated 12/04/2024, there is now 3 fragments of the prior renal calculus present. This is presumed to be present after lithotripsy. There is tiny air bubbles, presumed iatrogenic, in the left kidney and urinary bladder. There is mild left hydronephrosis and hydroureter. Patient's pain is much better controlled. I spoke with the patient's mother and they have not filled the Toradol prescription. Blood Culture(s) Obtained: No Antibiotics given: Yes Counseled pt/family regarding: lab results, diagnosis, need for follow-up, rad results Medical Desision Making - Independent Historian Additional History obtained from: Mother - Diagnostic Testing Diagnostic test were ordered, analyzed, and reviewed by me: Yes Radiological Interpretation: Reviewed by me, Teleradiologist Report - Risk of complications The pt has a mod risk of morbidity or mortality based on: Need for prescription drug management - Departure Departure Disposition: Home Clinical Impression: Left flank pain, Kidney stone on left side Condition: Stable Critical Care Time: No Referrals: TIN LAST MD [Primary Care Provider] - Follow up/PCP as directed Additional Instructions: Drink plenty of fluids. Take your antibiotics as prescribed. Fill the Toradol prescription today and take that as prescribed. Call your urologist tomorrow morning, 12/23/2024, to obtain instructions on further management. Tell him the large stone that was present on 12/04/2024, is now in 3 fragments within the kidney on the left side. There is mild left hydronephrosis and mild left hydroureter. Prescriptions: Hydrocodone/APAP 5/325 [[place] 5/325 mg] 1 each PO Q6H PRN PRN #10 tablet MDD 4 PRN Reason: Pain Ciprofloxacin [Cipro 500 MG] 500 mg PO BID #14 tablet
[2024-12-22 16:13] VITALS: TEMP 96.8
[2024-12-22] MEDS ORDERED: Zofran 4 MG/2 ML VIAL ONE (16:29)
[2024-12-22] MEDS ORDERED: TORAdol 30 mg Injection ONE (16:30)
[2024-12-22] MEDS ORDERED: Sodium Chloride 0.9% 1000 ML 1,000 ML ONE (16:31)
[2024-12-22] MEDS ORDERED: Hydromorphone 1 mg/ml Injection ONE (16:31)
[2024-12-22] MEDS: Zofran 4 MG/2 ML VIAL IV ONE (16:33)
[2024-12-22 16:34] LABS: Absolute Neutrophil Ct (ANC) 15.58 x10^3/uL (1.56-6.13); BASOPHIL % 0.2 % (0.1-1.2); Basophil (Absolute #) 0.05 x10^3/uL (0.01-0.08); Eosinophil % 0.6 % (0.7-5.8); Eosinophil (Absolute #) 0.12 x10^3/uL (0.04-0.36); Hematocrit 38.3 % (34.1-44.9); Hemoglobin 12.7 g/dL (11.2-15.7); IMMATURE GRAN # 0.11 x10^3u/L (0.001-0.031); IMMATURE GRAN % 0.5 % (0.001-0.429); Lymphocyte (Absolute #) 3.09 x10^3/uL (1.18-3.74); Lymphocytes % 15.1 % (19.3-51.7); Mean Corpuscular Hemoglobin 28.9 pg (25.6-32.2); Mean Corpuscular Hgb Concent. 33.2 g/dL (32.2-35.5); Mean Platelet Volume 9.3 fL (9.4-12.3); Monocyte (Absolute #) 1.48 x10^3/uL (0.24-0.86); Monocytes % 7.2 % (4.7-12.5); Neutrophil % 76.4 % (34.0-71.1); Platelet Count 417 x10^3/uL (182-369); Red Cell Distribution Width 13.9 % (11.7-14.4); White Blood Count 20.4 x10^3/uL (3.98-10.04)
[2024-12-22] MEDS: TORAdol 30 mg Injection IV ONE (16:39)
[2024-12-22] MEDS: Hydromorphone 1 mg/ml Injection IV ONE (16:42)
[2024-12-22] MEDS: Sodium Chloride 0.9% 1000 ML 1,000 ML IV STA (16:48)
[2024-12-22 16:49] LABS: ALBUMIN 4.3 g/dL (3.5-5.0); BILIRUBIN,TOTAL 0.4 mg/dL (0.2-1.3); Calcium 9.3 mg/dL (8.4-10.2); Creatinine 1 0.79 mg/dL (0.52-1.04); EST GLOMERULAR FILTRATION RATE 107.1 ML/MIN; Potassium 4.2 mmol/L (3.5-5.1)
[2024-12-22 17:24] LABS: Appearance Clear (Clear); Bacteria None Seen /HPF (None Seen); Bilirubin Negative (Negative); Blood Large (Negative); Epithelial Cells Rare /HPF (None Seen); Glucose, Urine Negative (Negative); Hyaline Casts NONE SEEN /LPF (0-2); Ketones Negative (Negative); Leukocyte Esterase Moderate (Negative); Nitrite Negative (Negative); Ph 6.5 (4.6-8.0); Protein,Urine Dip 30 (Negative); Urobilinogen 0.2 mg/dL (0.2); WBC 21-50 /HPF (0-5)
[2024-12-22] MEDS ORDERED: ROCEPHIN 1 GM / 100 ML NaCl 1 GM/100 ML IVPB IV ONE (18:05)
[2024-12-22] MEDS: ROCEPHIN 1 GM / 100 ML NaCl 1 GM/100 ML IVPB IV ONE (18:07)
[2024-12-22 18:14] VITALS: RESP 16
[2024-12-22] MEDS ORDERED: NORCO 5/325 MG ONE (18:51)
[2024-12-22] MEDS: NORCO 5/325 MG PO ONE (18:56)
[2024-12-22 19:04] VITALS: BP 113/76; PULSE 78; O2SAT 93
--- NOTE | 2024-12-23 08:41 | XRAY ---
Indication: Left flank pain. Status post renal stone and ureteral stent removal. Multiple contiguous axial images obtained through the abdomen and pelvis without contrast using renal stone protocol. Comparison: December 04, 2024 Lung bases clear. Heart not enlarged. Previous left UPJ calculus now seen left lower renal calyx fragmented into at least 3 calculi, largest 8mm presumed from lithotripsy. Minimal left hydronephrosis and hydroureter presumed from recent obstructive uropathy. Also new air bubbles left renal calyx and urinary bladder presumed iatrogenic. No free fluid/air. Noncontrasted stomach and bowel loops nonobstructed. Again fatty liver. Remaining liver, gallbladder, pancreas, spleen, adrenal glands, right kidney, right ureter, uterus, and aorta are unremarkable for noncontrast exam. Impression: 1. Fragmented left renal micro-calculi as detailed presumed from lithotripsy. Minimal left hydronephrosis/hydroureter. Also new left renal and urinary bladder air bubbles presumed iatrogenic. Gas-forming bacterial infection not completely excluded. 2. Again fatty liver.
== END 2024-12-22 19:04 | disposition home or self-care (01) ==
LOC: ED 15:59
DX: N13.2 Hydronephrosis with renal and ureteral calculous obstruction (principal); R10.9 Unspecified abdominal pain; Z79.891 Long term (current) use of opiate analgesic; Z79.899 Other long term (current) drug therapy
CPT/HCPCS: 36415; 74176; 80053; 81001; 82150; 83690; 85025; 87086; 96361; 96365; 96374; 96375; 99284; 99285; J0696; J1171; J1885; J2405; A9270-GY